=== PATIENT | male | born 1970 | race African-American/Black ===

== ENCOUNTER 2019-09-23 18:41 | Emergency (ER) | payer MEDICAID, OTHER ==
[~2019-09-23] VITALS: Ht 185.4 cm; Wt 65.8 kg
[~2019-09-23 18:41] MED LIST: LORA-259; QUET200T
[2019-09-23 18:55] VITALS: BP_SYST 125
[2019-09-23 19:41] LABS: CALCIUM 8.3 mg/dL (8.4-11.0); CREATININE 0.7 mg/dL (0.55-1.30); POTASSIUM 4.1 mmol/L (3.5-5.1)
[2019-09-23 19:46] LABS: ALBUMIN 3.4 g/dL (3.4-4.8); BASOPHILS % (AUTO) 0.1 % (0.0-2.0); EOSINOPHILS # (AUTO) 0.1 K/uL (0.0-0.4); EOSINOPHILS % (AUTO) 1.5 % (0.0-4.0); HEMOGLOBIN 13.5 g/dL (14.0-18.0); LYMPHOCYTES # (AUTO) 0.8 K/uL (1.0-5.5); LYMPHOCYTES % (AUTO) 11.8 % (20.5-51.5); MEAN CORPUSCULAR HEMOGLOBIN 29 pg (27-31); MEAN CORPUSCULAR HGB CONC 33 % (32-36); MEAN CORPUSCULAR VOLUME 87 fL (79.0-98.0); MONOCYTES # (AUTO) 0.4 K/uL (0.0-1.0); MONOCYTES % (AUTO) 6.2 % (1.7-9.3); NEUTROPHILS # (AUTO) 5.5 K/uL (1.8-7.7); NEUTROPHILS % (AUTO) 80.4 % (40.0-70.0); PLATELET COUNT (AUTO) 287 K/uL (130-430); RED CELL DISTRIBUTION WIDTH 14.2 % (9.0-15.0); TOTAL BILIRUBIN 0.6 mg/dL (0.0-1.0); WHITE BLOOD COUNT (AUTO) 6.8 K/uL (4.8-10.8)
[2019-09-23] MEDS ORDERED: ASPIRIN 81 MG TAB.CHEW PO ONE (20:45)
[2019-09-23] MEDS ORDERED: ONDANSETRON 4 MG ODT TAB PO ONE (20:45)
[2019-09-23] MEDS ORDERED: FAMOTIDINE 20 MG TABLET PO ONE (20:45)
[2019-09-24 03:40] VITALS: BP_SYST 120
== END 2019-09-24 03:40 | disposition home or self-care (01) ==
LOC: SED 18:41
DX: R07.89 Other chest pain (principal); R11.10 Vomiting, unspecified; R10.9 Unspecified abdominal pain; F17.200 Nicotine dependence, unspecified, uncomplicated
CPT/HCPCS: 36415; 71045; 80053; 83690; 84484; 85025; 99285; Q0162

== ENCOUNTER 2020-01-14 15:39 | Emergency (ER) | payer OTHER ==
[~2020-01-14] VITALS: Ht 185.4 cm; Wt 81.6 kg
[2020-01-14 15:42] VITALS: BP_SYST 143
[2020-01-14 15:56] VITALS: BP_SYST 143
== END 2020-01-14 15:58 ==
LOC: SED 15:39
DX: R03.0 Elevated blood-pressure reading, without diagnosis of hypertension (principal); F17.200 Nicotine dependence, unspecified, uncomplicated; F15.90 Other stimulant use, unspecified, uncomplicated
CPT/HCPCS: 99283